=== PATIENT | female | born 1955 | race Caucasian/White ===

== ENCOUNTER → 2019-10-11 13:00 | Outpatient (CLI) | payer MEDICARE | LOC: D.MAMMO 10-09 10:00 | PROVIDERS: ATTEND Family Medicine | DX: Z12.31 Encounter for screening mammogram for malignant neoplasm of breast (principal) ==

== ENCOUNTER 2019-11-07 05:43 | Day surgery (SDC) | payer MEDICARE, BC ==
[~2019-11-07] VITALS: Ht 167.6 cm; Wt 110.9 kg
[2019-11-07 06:18] LABS: APTT 31.2 SECONDS (22.8-39.4)
[2019-11-07 06:19] LABS: EOSINOPHILS 2.3 % (0-7); HEMATOCRIT 41.8 % (36.0-48.0); HEMOGLOBIN 13.2 g/dL (12-16); IMMATURE GRANULOCYTES 0.3 % (0-5); INR 0.89 (0.85-1.17); LYMPHOCYTES 44.6 % (15-50); MCH 30.2 pg (26.0-34.0); MCHC 31.6 g/dL (31.0-37.0); MCV 95.7 fL (80.0-100.0); MONOCYTES 11.9 % (2-11); NEUTROPHILS 39.9 % (40-80); PLATELET COUNT 551 10x3/uL (130-400); RBC 4.37 10x6/uL (4.00-5.40); RDW 15.9 % (11.5-14.5); WBC 11.7 10x3/uL (4.8-10.8)
[2019-11-07 06:30] LABS: CALCIUM 9.8 mg/dL (8.5-10.1); CARBON DIOXIDE 29.3 mmol/L (21.0-32.0); CREATININE - SERUM 0.9 mg/dL (0.6-1.3); POTASSIUM - SERUM 4.3 mmol/L (3.5-5.1)
[2019-11-07 06:42] VITALS: BP 128/71; Ht 167.6 cm; Wt 110.9 kg
--- NOTE | 2019-11-07 07:02 | NUR ---
DR BOWEN NOTIFIED AND REVIEWED PT's BEHAVIOR AND ASSESSMENT RESULTS. PT IS A LOW RISK PER DR BOWEN. DR BOWEN STATED TO GIVE RESOURCES TO PT AT TIME OF DISCHARGE. NO FURTHER ORDERS AT THIS TIME. REVIEWED RESOURCES WITH PT AND SHE VERBALIZED UNDERSTANDING.
[2019-11-07] MEDS ORDERED: NEURONTIN600 MG PO (07:12)
[2019-11-07] MEDS ORDERED: LAMICTAL100 MG PO (07:13)
[2019-11-07] MEDS ORDERED: GLUCOPHAGE1000 MG PO (07:13)
[2019-11-07] MEDS ORDERED: KLONOPIN1 MG PO (07:14)
[2019-11-07] MEDS ORDERED: PEPCID AC20 MG PO (07:14)
[2019-11-07] MEDS ORDERED: PROTONIX40 MG PO (07:14)
[2019-11-07] MEDS ORDERED: CRESTOR40 MG PO (07:15)
[2019-11-07] MEDS ORDERED: PIOGLITAZONE15 MG PO (07:15)
[2019-11-07] MEDS ORDERED: BASAGLAR K100 UNIT/1 SC (07:16)
[2019-11-07] MEDS ORDERED: CYMBALTA30 MG PO (07:16)
[2019-11-07] MEDS ORDERED: VICTOZA0.6 MG/0.1 SQ (07:16)
[2019-11-07] MEDS ORDERED: TRAZODONE HCL150 MG PO (07:17)
[2019-11-07] MEDS ORDERED: METHOCARBAMOL500 MG PO (07:18)
[2019-11-07] MEDS ORDERED: FARXIGA10 MG PO (07:19)
[2019-11-07] MEDS ORDERED: NYSTATIN1 PWD TOPICAL (07:20)
[2019-11-07] MEDS ORDERED: DIFLUCAN100 MG PO (07:21)
--- NOTE | 2019-11-07 10:36 | NUR ---
1000 RECIEVED REPORT FROM TIMMY PAPPAS. PT AWAKE EATING BREAKFAST TRAY. FRIEND AT BEDSIDE. O2 SATS LOW. MAINTAINED WITH SIMPLE MASK AT 10LITERS. PT UNABLE TO USE NC.
--- NOTE | 2019-11-07 13:13 | NUR ---
1250 IV REMOVED AND INSTRUCTIONS GIVEN .ASSISTED WITH GETTING DRESSED ASSISTED TO BATHROOM WITH WALKER. DRESSING CDI. DENIES PAIN.
== END 2019-11-07 13:10 | disposition home or self-care (01) ==
LOC: D.SP 05:43 → D.CT 08:00 → D.SP 08:00
PROVIDERS: Specialist; ATTEND Internal Medicine Hematology & Oncology
DX: D47.3 Essential (hemorrhagic) thrombocythemia (principal); F41.9 Anxiety disorder, unspecified; I63.9 Cerebral infarction, unspecified; E11.9 Type 2 diabetes mellitus without complications; E78.5 Hyperlipidemia, unspecified; D72.821 Monocytosis (symptomatic); D72.820 Lymphocytosis (symptomatic); H43.393 Other vitreous opacities, bilateral; G50.0 Trigeminal neuralgia; Z87.42 Personal history of other diseases of the female genital tract; Z12.11 Encounter for screening for malignant neoplasm of colon; J34.9 Unspecified disorder of nose and nasal sinuses; Z86.718 Personal history of other venous thrombosis and embolism; B37.2 Candidiasis of skin and nail; Q89.01 Asplenia (congenital); K86.3 Pseudocyst of pancreas; E11.40 Type 2 diabetes mellitus with diabetic neuropathy, unspecified; I85.00 Esophageal varices without bleeding

== ENCOUNTER → 2019-12-12 12:24 | Outpatient (CLI) | payer MEDICARE, BC ==
[2019-11-07 06:42] VITALS: BMI 39.4
[~2019-12-12 12:24] MED LIST: BASAGLAR K100 UNIT/1 SC; CRESTOR40 MG PO; CYMBALTA30 MG PO; DIFLUCAN100 MG PO; FARXIGA10 MG PO; GLUCOPHAGE1000 MG PO; KLONOPIN1 MG PO; LAMICTAL100 MG PO; METHOCARBAMOL500 MG PO; NEURONTIN600 MG PO; NYSTATIN1 PWD TOPICAL; PEPCID AC20 MG PO; PIOGLITAZONE15 MG PO; PROTONIX40 MG PO; TRAZODONE HCL150 MG PO; VICTOZA0.6 MG/0.1 SQ
== END | disposition home or self-care (01) ==
LOC: D.RAD 12:24
PROVIDERS: ATTEND Internal Medicine Gastroenterology
DX: R19.4 Change in bowel habit (principal); K92.1 Melena